=== PATIENT | female | born 1975 | race Caucasian/White ===

== ENCOUNTER → 2017-01-31 | Outpatient (CLI) | payer BC ==
[~2017-01-31] MED LIST: ACULAR 3 ML3 M1 OP; CEFTIN500 MG PO; TOBREX 5 ML5 ML OPH; TYLENOL W/CODE480 ML PO; VICODIN 5/500 505 MG PO
[2017-01-31 12:24] LABS: BASO # 0.1 10*3/uL (0.0-0.1); BASO % 0.6 % (0.0-1.0); EOS # 0.1 10*3/uL (0.0-0.4); HEMATOCRIT 45.5 % (37.0-47.0); HEMOGLOBIN 15.2 g/dl (12.0-16.0); IG # 0.1 10*3/uL (0.0-0.1); LYMPH # 1.8 10*3/uL (1.3-4.4); LYMPH % 20.6 % (27.0-41.0); MEAN CELL VOLUME 91.2 fl (81.0-99.0); MEAN CORPUSCULAR HGB 30.5 pg (27.0-31.0); MEAN CORPUSCULAR HGB CONC 33.4 g/dl (33.0-37.0); MEAN PLATELET VOLUME 10.3 fl (9.6-12.3); MONO # 0.8 10*3/uL (0.1-1.0); MONO % 9.7 % (3.0-9.0); NEUT # 5.8 10*3/uL (2.3-7.9); NEUT % 67.3 % (47.0-73.0); PLATELET COUNT AUTOMATED 284 10*3/uL (130-400); RED BLOOD COUNT 4.99 10*6/uL (4.10-5.10); RED CELL DISTRI WIDTH 13.8 % (0-14.5); WHITE BLOOD COUNT 8.6 10*3/uL (4.8-10.8)
[2017-01-31 12:43] LABS: ALKALINE PHOSPHATASE 51 U/L (45-117); BILIRUBIN, TOTAL 0.4 mg/dl (0.2-1.0); BUN 9 mg/dl (7-24); CARBON DIOXIDE 27 mmol/L (21-32); CHLORIDE 105 mmol/L (98-107); EST GLOM FILT AFRICAN AMERICAN > 60 ml/min; GLUCOSE 82 mg/dL (65-99); POTASSIUM 4.4 mmol/L (3.5-5.1); SGOT/AST 63 IU/L (3-35); SGPT/ALT 126 U/L (12-78); SODIUM 140 mmol/L (136-145); TOTAL PROTEIN 8.2 gm/dL (6.4-8.2)
[2017-01-31 13:35] LABS: VITAMIN D, 25-HYDROXY 30.9 ng/mL (30-100)
[2017-01-31 13:36] LABS: FOLIC ACID 7.85 ng/mL (>5.38)
== END | disposition home or self-care (01) ==
LOC: LAB 11:53
PROVIDERS: Nurse Practitioner Psychiatric/Mental Health
DX: Z51.81 Encounter for therapeutic drug level monitoring (principal); Z79.899 Other long term (current) drug therapy

== ENCOUNTER 2017-11-10 01:49 | Emergency (ER) | payer BC ==
[~2017-11-10] VITALS: Ht 172.7 cm; Wt 72.6 kg
[2017-11-10 02:30] LABS: BILIRUBIN NEGATIVE (NEGATIVE); BLOOD NEGATIVE (NEGATIVE); CLARITY SL CLOUDY (CLEAR); COLOR YELLOW (YELLOW); GLUCOSE NEGATIVE (NEGATIVE); KETONE NEGATIVE (NEGATIVE); LEUKO ESTERASE NEGATIVE (NEGATIVE); NITRITE NEGATIVE (NEGATIVE); PH 5.5 (5.0-9.0); SPECIFIC GRAVITY >= 1.030 (1.005-1.030); UROBILINOGEN 0.2 E.U./dl (0.2-1.0)
[2017-11-10 02:41] LABS: BASO # 0.1 10*3/uL (0.0-0.1); BASO % 0.6 % (0.0-1.0); EOS # 0.2 10*3/uL (0.0-0.4); EOS % 1.9 % (1.0-4.0); HEMATOCRIT 46.6 % (37.0-47.0); HEMOGLOBIN 15.5 g/dl (12.0-16.0); LYMPH # 2.4 10*3/uL (1.3-4.4); LYMPH % 28.1 % (27.0-41.0); MEAN CELL VOLUME 89.6 fl (81.0-99.0); MEAN CORPUSCULAR HGB 29.8 pg (27.0-31.0); MEAN CORPUSCULAR HGB CONC 33.3 g/dl (33.0-37.0); MEAN PLATELET VOLUME 10.8 fl (9.6-12.3); MONO # 0.8 10*3/uL (0.1-1.0); MONO % 9.9 % (3.0-9.0); NEUT % 59.3 % (47.0-73.0); PLATELET COUNT AUTOMATED 283 10*3/uL (130-400); RED CELL DISTRI WIDTH 13.5 % (0-14.5); WHITE BLOOD COUNT 8.4 10*3/uL (4.8-10.8)
[2017-11-10 02:44] LABS: CALCIUM OXALATE CRYSTALS 1+; EPITHELIAL CELLS 40-45
[2017-11-10 02:45] LABS: BACTERIA TRACE; WBC 0-2 wbc/hpf (0-5)
[2017-11-10 03:03] LABS: ALBUMIN 4.1 gm/dl (3.1-4.5); ALKALINE PHOSPHATASE 48 U/L (45-117); BUN 11 mg/dl (7-24); CHLORIDE 103 mmol/L (98-107); CREATININE 0.97 mg/dL (0.55-1.02); LIPASE 151 U/L (73-393); POTASSIUM 3.7 mmol/L (3.5-5.1); SGOT/AST 50 IU/L (3-35); SGPT/ALT 78 U/L (12-78); SODIUM 138 mmol/L (136-145); TOTAL PROTEIN 8.7 gm/dL (6.4-8.2)
[2017-11-10 03:23] VITALS: BP 118/70
[2017-11-10] MEDS ORDERED: FLAGYL250 MG PO (04:21)
[2017-11-10] MEDS ORDERED: CIPRO250 MG PO (04:21)
== END 2017-11-10 04:41 | disposition home or self-care (01) ==
LOC: ED 01:49
PROVIDERS: Student in an Organized Health Care Education/Training Program
DX: K52.9 Noninfective gastroenteritis and colitis, unspecified (principal)

== ENCOUNTER 2017-11-26 15:30 | Inpatient (IN) | payer BC ==
[~2017-11-26] VITALS: Ht 172.7 cm; Wt 78.9 kg
[~2017-11-26 15:30] MED LIST changes: +CIPRO250 MG PO; +FLAGYL250 MG PO
[2017-11-26 15:34] VITALS: BP 138/80
[2017-11-26 16:11] LABS: BASO % 0.3 % (0.0-1.0); EOS % 0.3 % (1.0-4.0); HEMATOCRIT 45.3 % (37.0-47.0); HEMOGLOBIN 14.9 g/dl (12.0-16.0); LYMPH # 0.8 10*3/uL (1.3-4.4); LYMPH % 28.7 % (27.0-41.0); MEAN CELL VOLUME 89.5 fl (81.0-99.0); MEAN CORPUSCULAR HGB 29.4 pg (27.0-31.0); MEAN CORPUSCULAR HGB CONC 32.9 g/dl (33.0-37.0); MEAN PLATELET VOLUME 10.9 fl (9.6-12.3); MONO # 0.2 10*3/uL (0.1-1.0); MONO % 7.8 % (3.0-9.0); NEUT # 1.8 10*3/uL (2.3-7.9); NEUT % 62.6 % (47.0-73.0); PLATELET COUNT AUTOMATED 119 10*3/uL (130-400); RED BLOOD COUNT 5.06 10*6/uL (4.10-5.10); RED CELL DISTRI WIDTH 13.8 % (0-14.5); WHITE BLOOD COUNT 2.9 10*3/uL (4.8-10.8)
[2017-11-26 16:19] LABS: BILIRUBIN NEGATIVE (NEGATIVE); BLOOD NEGATIVE (NEGATIVE); CLARITY SL CLOUDY (CLEAR); COLOR YELLOW (YELLOW); GLUCOSE NEGATIVE (NEGATIVE); KETONE 1+ (NEGATIVE); LEUKO ESTERASE NEGATIVE (NEGATIVE); NITRITE NEGATIVE (NEGATIVE); SPECIFIC GRAVITY >= 1.030 (1.005-1.030)
[2017-11-26 16:26] LABS: BACTERIA 2+
[2017-11-26 16:27] LABS: ALKALINE PHOSPHATASE 78 U/L (45-117); BUN 9 mg/dl (7-24); CHLORIDE 102 mmol/L (98-107); LIPASE 162 U/L (73-393); POTASSIUM 3.7 mmol/L (3.5-5.1); SGOT/AST 708 IU/L (3-35); SGPT/ALT 318 U/L (12-78); SODIUM 137 mmol/L (136-145); TOTAL PROTEIN 7.8 gm/dL (6.4-8.2)
[2017-11-26 16:28] LABS: URINE AMPHETAMINES < 1000 (1000ng/ml); URINE BARBITURATES < 200 (200ng/ml); URINE BENZODIAZEPINES < 200 (200ng/ml); URINE CANNABINOIDS (THC) < 50 (50ng/ml); URINE COCAINE > 300 (300ng/ml); URINE METHADONE < 300 (300ng/ml); URINE OPIATES < 300 (300ng/ml)
[2017-11-26 16:29] LABS: URINE PHENCYCLIDINE < 25 (25ng/ml)
[2017-11-26 16:33] VITALS: BP 70/40
[2017-11-26 17:25] LABS: ALKALINE PHOSPHATASE 76 U/L (45-117); BILIRUBIN, DIRECT 0.2 mg/dL (0.0-0.2); SGOT/AST 716 IU/L (3-35); SGPT/ALT 317 U/L (12-78); TOTAL PROTEIN 7.9 gm/dL (6.4-8.2)
[2017-11-26 17:28] LABS: TROPONIN I < 0.015 ng/ml (<0.045)
[2017-11-26 17:29] LABS: ACETAMINOPHEN (TYLENOL) 37.9 ug/ml (10-30); ETHYL ALCOHOL < 3.0 mg/dl (<3)
[2017-11-26 17:53] VITALS: BP 134/72
[2017-11-26 18:25] VITALS: BP 129/74
[2017-11-26 20:00] VITALS: BP 129/79
[2017-11-26 20:45] LABS: INTERNATIONAL NORM RATIO 1.2 (2.0-3.5)
[2017-11-27] VITALS: BP 125/81
[2017-11-27 06:10] LABS: ALBUMIN 3.1 gm/dl (3.1-4.5); BUN 8 mg/dl (7-24); CHLORIDE 101 mmol/L (98-107); CHOLESTEROL 148 mg/dL (<200); CREATININE 0.77 mg/dL (0.55-1.02); PHOSPHOROUS 2.5 mg/dL (2.5-4.9); POTASSIUM 3.2 mmol/L (3.5-5.1); SODIUM 137 mmol/L (136-145); TRIGLYCERIDES 28 mg/dl (<150); VLDL CHOLESTEROL 6 mg/dL (6-40)
[2017-11-27 06:25] LABS: TOTAL PROTEIN 6.4 gm/dL (6.4-8.2)
[2017-11-27 06:34] LABS: ALKALINE PHOSPHATASE 55 U/L (45-117); HDL CHOLESTEROL 98 mg/dl (40-60); LDL CHOLESTEROL 44 mg/dL (9-159)
[2017-11-27 06:39] LABS: SGOT/AST 3732 IU/L (3-35); SGPT/ALT 1423 U/L (12-78)
[2017-11-27 06:49] LABS: BASO % 0.2 % (0.0-1.0); EOS % 0.2 % (1.0-4.0); HEMATOCRIT 39.4 % (37.0-47.0); HEMOGLOBIN 13.3 g/dl (12.0-16.0); LYMPH # 0.8 10*3/uL (1.3-4.4); LYMPH % 17.1 % (27.0-41.0); MEAN CELL VOLUME 87.9 fl (81.0-99.0); MEAN CORPUSCULAR HGB 29.7 pg (27.0-31.0); MEAN CORPUSCULAR HGB CONC 33.8 g/dl (33.0-37.0); MEAN PLATELET VOLUME 11.4 fl (9.6-12.3); MONO # 0.1 10*3/uL (0.1-1.0); MONO % 2.4 % (3.0-9.0); NEUT # 3.7 10*3/uL (2.3-7.9); NEUT % 79.9 % (47.0-73.0); PLATELET COUNT AUTOMATED 106 10*3/uL (130-400); RED BLOOD COUNT 4.48 10*6/uL (4.10-5.10); RED CELL DISTRI WIDTH 13.5 % (0-14.5); WHITE BLOOD COUNT 4.6 10*3/uL (4.8-10.8)
[2017-11-27 07:59] LABS: VITAMIN D, 25-HYDROXY 19.5 ng/mL (30-100)
[2017-11-27 08:00] VITALS: BP 119/96
[2017-11-27 12:00] VITALS: BP 132/81
[2017-11-27 16:00] VITALS: BP 116/61
[2017-11-27 20:05] VITALS: BP 114/66
[2017-11-28 00:25] VITALS: BP 120/63
[2017-11-28 03:12] LABS: HEMATOCRIT 40.6 % (37.0-47.0); HEMOGLOBIN 13.6 g/dl (12.0-16.0); MEAN CELL VOLUME 88.1 fl (81.0-99.0); MEAN CORPUSCULAR HGB 29.5 pg (27.0-31.0); MEAN CORPUSCULAR HGB CONC 33.5 g/dl (33.0-37.0); MEAN PLATELET VOLUME 11.5 fl (9.6-12.3); PLATELET COUNT AUTOMATED 93 10*3/uL (130-400); RED BLOOD COUNT 4.61 10*6/uL (4.10-5.10); RED CELL DISTRI WIDTH 13.5 % (0-14.5)
[2017-11-28 03:22] LABS: ACT PARTIAL THROMBO TIME 41.3 SECONDS (20.8-31.5); INTERNATIONAL NORM RATIO 1.9 (2.0-3.5)
[2017-11-28 03:30] LABS: ALKALINE PHOSPHATASE 67 U/L (45-117); BUN 6 mg/dl (7-24); CHLORIDE 103 mmol/L (98-107); CREATININE 0.84 mg/dL (0.55-1.02); POTASSIUM 3.7 mmol/L (3.5-5.1); SODIUM 139 mmol/L (136-145); TOTAL PROTEIN 6.2 gm/dL (6.4-8.2)
[2017-11-28 03:34] LABS: ATYPICAL LYMPHS 1 % (0-0); PLATELET SUFFICIENCY LOW (NORMAL); TOTAL CELLS COUNTED 100 #CELLS
[2017-11-28 03:35] LABS: BURR CELLS FEW
[2017-11-28 03:51] LABS: SGOT/AST 10878 IU/L (3-35); SGPT/ALT 4691 U/L (12-78)
[2017-11-28 08:00] VITALS: BP 118/67
[2017-11-28 08:08] LABS: HEPATITIS B SURFACE AG Negative (Negative); HEPATITIS C VIRUS ANTIBODY <0.1 s/co (0.0-0.9)
[2017-11-28 08:08] LABS: HIV 1+2 AB + HIV1 P24 AG Non Reactive (Non Reactive)
[2017-11-28 08:31] LABS: ACT PARTIAL THROMBO TIME 42.2 SECONDS (20.8-31.5); INTERNATIONAL NORM RATIO 1.8 (2.0-3.5)
[2017-11-28 17:00] VITALS: BP 118/75
[2017-11-28 18:24] LABS: ALBUMIN 2.7 gm/dl (3.1-4.5); ALKALINE PHOSPHATASE 67 U/L (45-117); BUN 8 mg/dl (7-24); CHLORIDE 101 mmol/L (98-107); CREATININE 0.89 mg/dL (0.55-1.02); POTASSIUM 3.8 mmol/L (3.5-5.1); SODIUM 137 mmol/L (136-145); TOTAL PROTEIN 5.9 gm/dL (6.4-8.2)
[2017-11-28 18:29] LABS: ACT PARTIAL THROMBO TIME 49.5 SECONDS (20.8-31.5); INTERNATIONAL NORM RATIO 1.9 (2.0-3.5)
[2017-11-28 19:07] LABS: SGOT/AST 8449 IU/L (3-35); SGPT/ALT 4504 U/L (12-78)
[2017-11-28 20:00] VITALS: BP 128/66
[2017-11-28 20:42] LABS: BILIRUBIN NEGATIVE (NEGATIVE); BLOOD 2+ (NEGATIVE); CLARITY SL CLOUDY (CLEAR); COLOR YELLOW (YELLOW); GLUCOSE NEGATIVE (NEGATIVE); KETONE 1+ (NEGATIVE); LEUKO ESTERASE NEGATIVE (NEGATIVE); NITRITE NEGATIVE (NEGATIVE); PH 5.5 (5.0-9.0); SPECIFIC GRAVITY 1.025 (1.005-1.030); UROBILINOGEN 0.2 E.U./dl (0.2-1.0)
[2017-11-28 20:50] LABS: BACTERIA 4+
[2017-11-28] MEDS ORDERED: NS 0.9% IV (22:16)
== END 2017-11-28 23:18 | disposition short-term general hospital (02) | DRG 918 ==
LOC: ED 15:30 → EDHOLD 17:12 → 4E 17:12 → ICCU 11-28 15:03
PROVIDERS: Family Medicine; Internal Medicine; Physician Assistant; Student in an Organized Health Care Education/Training Program
DX: T39.1X1A Poisoning by 4-Aminophenol derivatives, accidental (unintentional), initial encounter (principal); D69.6 Thrombocytopenia, unspecified; K72.90 Hepatic failure, unspecified without coma; B17.9 Acute viral hepatitis, unspecified; F55.2 Abuse of laxatives; Z79.899 Other long term (current) drug therapy; Z79.2 Long term (current) use of antibiotics; Z82.49 Family history of ischemic heart disease and other diseases of the circulatory system; Z98.51 Tubal ligation status; Z72.89 Other problems related to lifestyle; Z84.89 Family history of other specified conditions

== ENCOUNTER → 2018-02-06 | Day surgery (SDC) | payer BC ==
[~2018-02-06] VITALS: Ht 172.7 cm; Wt 74.8 kg
[~2018-02-06] MED LIST changes: +NS 0.9% IV
--- NOTE | ~2018-02-06 | PROC NOTE ---
[place], [place] PROCEDURE NOTE NAME: SELINA CORBETT UNIT #: [id number] ROOM: DOCTOR: NELA CORRALES MD BIRTHDATE: [birth year] DOS: 02/06/2018 PREOPERATIVE DIAGNOSES: Diarrhea, weight loss. POSTOPERATIVE DIAGNOSIS: Colitis. PROCEDURE: Colonoscopy with random biopsies. ENDOSCOPIST: Nela Corrales MD LENS MAKER: ELIDA. ANESTHESIA: MAC. INDICATIONS: This is a 42-year-old lady here for a colonoscopy for symptoms of diarrhea and weight loss. The procedure and its complications were explained to the patient in detail preoperatively. Complications that were discussed included but were not limited to, bleeding, colon perforation, missed lesions and prolonged pain. She agreed to proceed. DESCRIPTION OF PROCEDURE: After identifying the patient, the patient was brought to the endoscopy suite and placed in the left lateral position. After IV sedation was administered, a timeout procedure was called and a digital rectal exam was performed, which was within normal limits. An adult colonoscope was now introduced into the anal canal and advanced sequentially into the rectum, sigmoid colon, descending colon, transverse colon and ascending colon, up to the cecum. There was found to be patches of erythematous mucosa that could be seen in the entirety of the colon. Upon reaching the cecum, the scope was withdrawn. Multiple random biopsies were done from the areas of the ascending colon, transverse colon, descending colon, sigmoid colon and sent for histopathological diagnosis. After the scope was withdrawn, the patient was brought back to the recovery room in a stable fashion. Based on these findings, the patient is recommended to have another colonoscopy in a year or sooner should the symptoms not improve. These findings were discussed with the patient's son in the recovery room. I will see the patient in the office in 2 weeks. Nela Corrales MD CM:PROCNOTE:PROCEDURE NOTE NELA CORRALES MD
[2018-02-06 07:30] VITALS: BP 101/82
[2018-02-06 08:50] VITALS: BP 103/59
[2018-02-06 09:05] VITALS: BP 110/59
[2018-02-06 09:19] VITALS: BP 111/73
== END | disposition home or self-care (01) ==
LOC: SDC 02-04 12:30
DX: K63.89 Other specified diseases of intestine (principal); K52.9 Noninfective gastroenteritis and colitis, unspecified; Z98.51 Tubal ligation status; Z80.0 Family history of malignant neoplasm of digestive organs

== ENCOUNTER → 2018-02-17 | Outpatient (CLI) | payer BC ==
[2018-02-17 14:49] LABS: BASO % 0.6 % (0.0-1.0); EOS # 0.1 10*3/uL (0.0-0.4); EOS % 1.1 % (1.0-4.0); HEMATOCRIT 44.8 % (37.0-47.0); HEMOGLOBIN 14.7 g/dl (12.0-16.0); LYMPH # 1.5 10*3/uL (1.3-4.4); LYMPH % 24.3 % (27.0-41.0); MEAN CELL VOLUME 89.6 fl (81.0-99.0); MEAN CORPUSCULAR HGB 29.4 pg (27.0-31.0); MEAN CORPUSCULAR HGB CONC 32.8 g/dl (33.0-37.0); MEAN PLATELET VOLUME 11.3 fl (9.6-12.3); MONO # 0.5 10*3/uL (0.1-1.0); MONO % 7.7 % (3.0-9.0); NEUT # 4.2 10*3/uL (2.3-7.9); PLATELET COUNT AUTOMATED 263 10*3/uL (130-400); RED CELL DISTRI WIDTH 13.5 % (0-14.5); WHITE BLOOD COUNT 6.3 10*3/uL (4.8-10.8)
[2018-02-17 15:15] LABS: ACT PARTIAL THROMBO TIME 23.5 SECONDS (20.8-31.5)
[2018-02-17 15:18] LABS: ALBUMIN 3.9 gm/dl (3.1-4.5); ALKALINE PHOSPHATASE 45 U/L (45-117); BUN 6 mg/dl (7-24); CHLORIDE 104 mmol/L (98-107); CREATININE 1.01 mg/dL (0.55-1.02); POTASSIUM 3.7 mmol/L (3.5-5.1); SGOT/AST 56 IU/L (3-35); SGPT/ALT 56 U/L (12-78); SODIUM 140 mmol/L (136-145); TOTAL PROTEIN 7.9 gm/dL (6.4-8.2)
== END | disposition home or self-care (01) ==
LOC: LAB 14:15
PROVIDERS: Surgery
DX: R11.2 Nausea with vomiting, unspecified (principal); D68.8 Other specified coagulation defects

== ENCOUNTER → 2018-02-23 | Outpatient (CLI) | payer BC | END | disposition home or self-care (01) | LOC: US 02:44 | DX: K76.89 Other specified diseases of liver (principal) ==

== ENCOUNTER 2018-03-15 18:34 | Emergency (ER) | payer BC ==
[~2018-03-15] VITALS: Ht 170.1 cm; Wt 74.8 kg
[2018-03-15] MEDS ORDERED: ESCITALOPRAM OX20 MG PO (18:41)
[2018-03-15] MEDS ORDERED: BUSPIRONE HCL10 MG PO (18:41)
[2018-03-15] MEDS ORDERED: ALPRAZOLAM0.5 M3 PO (18:41)
[2018-03-15 18:53] LABS: BASO % 0.4 % (0.0-1.0); EOS # 0.2 10*3/uL (0.0-0.4); EOS % 2.1 % (1.0-4.0); HEMATOCRIT 42.2 % (37.0-47.0); HEMOGLOBIN 13.9 g/dl (12.0-16.0); LYMPH # 1.6 10*3/uL (1.3-4.4); LYMPH % 20.6 % (27.0-41.0); MEAN CORPUSCULAR HGB 29.6 pg (27.0-31.0); MEAN CORPUSCULAR HGB CONC 32.9 g/dl (33.0-37.0); MEAN PLATELET VOLUME 10.6 fl (9.6-12.3); MONO # 0.5 10*3/uL (0.1-1.0); MONO % 7.2 % (3.0-9.0); NEUT # 5.2 10*3/uL (2.3-7.9); NEUT % 69.2 % (47.0-73.0); PLATELET COUNT AUTOMATED 277 10*3/uL (130-400); RED BLOOD COUNT 4.69 10*6/uL (4.10-5.10); RED CELL DISTRI WIDTH 13.7 % (0-14.5); WHITE BLOOD COUNT 7.5 10*3/uL (4.8-10.8)
[2018-03-15 19:11] LABS: ACT PARTIAL THROMBO TIME 23.4 SECONDS (20.8-31.5)
[2018-03-15 19:16] LABS: ALBUMIN 4.1 gm/dl (3.1-4.5); ALKALINE PHOSPHATASE 46 U/L (45-117); BUN 4 mg/dl (7-24); CHLORIDE 104 mmol/L (98-107); CREATININE 0.78 mg/dL (0.55-1.02); POTASSIUM 3.1 mmol/L (3.5-5.1); SGOT/AST 60 IU/L (3-35); SGPT/ALT 52 U/L (12-78); SODIUM 141 mmol/L (136-145); TOTAL PROTEIN 7.7 gm/dL (6.4-8.2)
[2018-03-15 19:21] LABS: ACETAMINOPHEN (TYLENOL) < 2.0 ug/ml (10-30); ETHYL ALCOHOL < 3.0 mg/dl (<3)
[2018-03-15 19:22] LABS: BILIRUBIN NEGATIVE (NEGATIVE); BLOOD NEGATIVE (NEGATIVE); CLARITY CLEAR (CLEAR); COLOR YELLOW (YELLOW); GLUCOSE NEGATIVE (NEGATIVE); KETONE TRACE (NEGATIVE); LEUKO ESTERASE NEGATIVE (NEGATIVE); NITRITE NEGATIVE (NEGATIVE); UROBILINOGEN 0.2 E.U./dl (0.2-1.0)
[2018-03-15 19:30] LABS: URINE AMPHETAMINES < 1000 (1000ng/ml); URINE BARBITURATES < 200 (200ng/ml); URINE BENZODIAZEPINES < 200 (200ng/ml); URINE CANNABINOIDS (THC) < 50 (50ng/ml); URINE COCAINE < 300 (300ng/ml); URINE METHADONE < 300 (300ng/ml); URINE OPIATES < 300 (300ng/ml)
[2018-03-15 19:38] LABS: URINE PHENCYCLIDINE < 25 (25ng/ml)
[2018-03-15 19:40] LABS: MUCOUS 1+
[2018-03-16 07:13] VITALS: BP 116/74
== END 2018-03-16 08:30 | disposition short-term general hospital (02) ==
LOC: ED 18:34
PROVIDERS: Emergency Medicine
DX: R45.851 Suicidal ideations (principal); F41.9 Anxiety disorder, unspecified; R10.84 Generalized abdominal pain; Z98.51 Tubal ligation status

== ENCOUNTER → 2019-03-03 | Outpatient (CLI) | payer OTHER ==
[~2019-03-03] MED LIST changes: +ALEVE220 MG PO; +ALPRAZOLAM0.5 M3 PO; +BUSPIRONE HCL10 MG PO; +ESCITALOPRAM OX20 MG PO; +LASIX20 MG PO
== END | disposition home or self-care (01) ==
LOC: US 06:25
DX: K76.89 Other specified diseases of liver (principal)

== ENCOUNTER → 2019-03-30 | Outpatient (CLI) | payer OTHER ==
[2019-03-31 12:07] LABS: ANTI-SMOOTH MUSCLE ANTIBODY 10 Units (0-19)
[2019-03-31 13:08] LABS: ANTI-DSDNA ANTIBODIES 096339 <1 IU/mL (0-9); ANTI-RNP ANTIBODIES <0.2 AI (0.0-0.9); ANTICHROMATIN ANTIBODIES <0.2 AI (0.0-0.9); ANTISCLERODERMA-70 AB <0.2 AI (0.0-0.9); SJOGREN ANTI-SS-A <0.2 AI (0.0-0.9); SJOREN AB, ANTI-SS-B <0.2 AI (0.0-0.9)
[2019-04-01 13:06] LABS: ANTIHISTONE ANTIBODIES 0.7 Units (0.0-0.9)
== END | disposition home or self-care (01) ==
LOC: LAB 11:18
PROVIDERS: Internal Medicine
DX: L29.8 Other pruritus (principal)

== ENCOUNTER → 2019-04-08 | Outpatient (CLI) | payer OTHER | END | disposition home or self-care (01) | LOC: MAMMO 12:43 | DX: Z12.31 Encounter for screening mammogram for malignant neoplasm of breast (principal) ==

== ENCOUNTER → 2019-04-28 | Outpatient (CLI) | payer OTHER | END | disposition home or self-care (01) | LOC: MAMMO 10:59 | DX: R92.8 Other abnormal and inconclusive findings on diagnostic imaging of breast (principal) ==

== ENCOUNTER → 2019-04-30 | Day surgery (SDC) | payer OTHER ==
[~2019-04-30] VITALS: Ht 167.6 cm; Wt 77.1 kg
--- NOTE | ~2019-04-30 | PROC NOTE ---
[place], [place] PROCEDURE NOTE NAME: SELINA CORBETT UNIT #: [id number] ROOM: DOCTOR: TERESITA LUU,ANGELIQUE BIRTHDATE: [birth year] DOS: PROCEDURE: Esophagogastroduodenoscopy and biopsy. INDICATION: Abdominal pain and nausea. An informed consent was obtained from the patient after indication of procedure, the alternatives, and potential complications were explained to her. PROCEDURE MEDICATION: Sedation was administered by Anesthesiology Department. Scope used was Olympus diagnostic adult upper endoscope GIF-180, depth of insertion was to the descending duodenum. FINDINGS: After adequate sedation, the patient was placed in left lateral decubitus position. The scope was introduced under direct visualization through the upper esophageal sphincter into the esophagus. Esophageal mucosa appeared normal with no ulcerations or strictures. Lower esophageal sphincter was identified at 38 cm from incisors. Stomach was then intubated. Gastric mucosa inspected. Large amounts of food residues were noted. The underlying mucosa showed evidence of gastritis and A JASON test was performed from the gastric antrum and body. Retroflexed views in the fundus showed a grade 1 sliding hiatal hernia. Pylorus was intubated easily. The duodenal bulb and descending duodenum were within normal range. Scope was then withdrawn after the stomach was decompressed. The patient tolerated the procedure well. IMPRESSION: 1. Small hiatal hernia. 2. Food residues in the stomach, rule out delayed gastric emptying. 3. Gastritis, AJSON test performed. PLAN: We will review the JASON test results, treat the patient accordingly. The patient will be scheduled for SmartPill study as an outpatient to evaluate the GI motility. Office followup will be scheduled in 2-3 weeks. ANGELIQUE LO MD CM:PROCNOTE:PROCEDURE NOTE [id number] ANGELIQUE LO MD
[2019-04-30 07:03] VITALS: BP 130/67
[2019-04-30 07:59] VITALS: BP 125/80
[2019-04-30 08:14] VITALS: BP 122/84
[2019-04-30 08:26] VITALS: BP 120/80
== END | disposition home or self-care (01) ==
LOC: SDC 04-27 10:15
DX: K44.9 Diaphragmatic hernia without obstruction or gangrene (principal); K29.70 Gastritis, unspecified, without bleeding; B19.20 Unspecified viral hepatitis C without hepatic coma; F41.9 Anxiety disorder, unspecified; F32.9 Major depressive disorder, single episode, unspecified; R94.5 Abnormal results of liver function studies; R68.81 Early satiety; E66.9 Obesity, unspecified; Z68.27 Body mass index [BMI] 27.0-27.9, adult; Z79.899 Other long term (current) drug therapy; Z87.19 Personal history of other diseases of the digestive system; Z98.51 Tubal ligation status; Z80.0 Family history of malignant neoplasm of digestive organs; Z98.890 Other specified postprocedural states; Z82.49 Family history of ischemic heart disease and other diseases of the circulatory system

== ENCOUNTER → 2020-04-10 | Outpatient (CLI) | payer OTHER | END | disposition home or self-care (01) | LOC: CT 07:43 | DX: K76.0 Fatty (change of) liver, not elsewhere classified (principal); K76.89 Other specified diseases of liver ==

== ENCOUNTER → 2020-07-18 | Outpatient (CLI) | payer OTHER | END | disposition home or self-care (01) | LOC: COVID19 00:25 | PROVIDERS: ATTEND Physician Assistant | DX: Z20.828 Contact with and (suspected) exposure to other viral communicable diseases (principal) ==

== ENCOUNTER → 2020-11-14 | Outpatient (CLI) | payer BC | END | disposition home or self-care (01) | LOC: COVID19 09:12 | PROVIDERS: ATTEND Physician Assistant | DX: Z20.822 Contact with and (suspected) exposure to COVID-19 (principal); R69 Illness, unspecified ==

== ENCOUNTER 2021-02-27 11:19 | Inpatient (IN) | payer BC ==
[2021-02-27] VITALS (11 sets, daily range): BP systolic 102–139; BP diastolic 52–85
[~2021-02-27] VITALS: Ht 172.7 cm; Wt 108.2 kg
[2021-02-27 11:56] LABS: BASO % 0.2 % (0.0-1.0); EOS % 0.2 % (1.0-4.0); HEMATOCRIT 37.9 % (37.0-47.0); LYMPH # 1.9 10*3/uL (1.3-4.4); LYMPH % 14.4 % (27.0-41.0); MEAN CELL VOLUME 91.5 fl (81.0-99.0); MEAN CORPUSCULAR HGB 29.7 pg (27.0-31.0); MEAN CORPUSCULAR HGB CONC 32.5 g/dl (33.0-37.0); MEAN PLATELET VOLUME 10.1 fl (9.6-12.3); MONO # 0.7 10*3/uL (0.1-1.0); MONO % 5.7 % (3.0-9.0); NEUT # 10.1 10*3/uL (2.3-7.9); NEUT % 78.9 % (47.0-73.0); PLATELET COUNT AUTOMATED 294 10*3/uL (130-400); RED BLOOD COUNT 4.14 10*6/uL (4.10-5.10); RED CELL DISTRI WIDTH 13.6 % (0-14.5); WHITE BLOOD COUNT 12.9 10*3/uL (4.8-10.8)
[2021-02-27 12:05] LABS: BILIRUBIN Negative (Negative); BLOOD Negative (Negative); CLARITY Clear (Clear); COLOR Yellow (Yellow); GLUCOSE Negative (Negative); KETONE 3+ (Negative); LEUKO ESTERASE Negative (Negative); NITRITE Negative (Negative); UROBILINOGEN 0.2 E.U./dl (0.0-1.0)
[2021-02-27] MEDS ORDERED: LINZESS290 MC1 PO (12:08)
[2021-02-27 12:11] LABS: ALBUMIN 3.4 gm/dl (3.1-4.5); ALKALINE PHOSPHATASE 58 U/L (45-117); BUN 12 mg/dl (7-24); CHLORIDE 109 mmol/L (98-107); CREATININE 0.88 mg/dL (0.55-1.02); POTASSIUM 3.6 mmol/L (3.5-5.1); SGOT/AST 49 IU/L (3-35); SGPT/ALT 111 U/L (12-78); SODIUM 138 mmol/L (136-145); TOTAL PROTEIN 7.7 gm/dL (6.4-8.2)
[2021-02-27 12:27] LABS: BACTERIA TRACE; EPITHELIAL CELLS TNTC; MUCOUS TRACE; RBC 0-2 rbc/hpf (0-2); WBC 0-2 wbc/hpf (0-5)
[2021-02-28] VITALS: BP 115/56
[2021-02-28 06:05] LABS: BASO % 0.1 % (0.0-1.0); HEMATOCRIT 35.3 % (37.0-47.0); LYMPH # 0.7 10*3/uL (1.3-4.4); LYMPH % 7.7 % (27.0-41.0); MEAN CELL VOLUME 92.7 fl (81.0-99.0); MEAN CORPUSCULAR HGB 29.7 pg (27.0-31.0); MEAN PLATELET VOLUME 10.5 fl (9.6-12.3); MONO # 0.4 10*3/uL (0.1-1.0); MONO % 4.2 % (3.0-9.0); NEUT # 8.3 10*3/uL (2.3-7.9); NEUT % 87.5 % (47.0-73.0); PLATELET COUNT AUTOMATED 260 10*3/uL (130-400); RED BLOOD COUNT 3.81 10*6/uL (4.10-5.10); RED CELL DISTRI WIDTH 13.9 % (0-14.5); WHITE BLOOD COUNT 9.5 10*3/uL (4.8-10.8)
[2021-02-28 06:25] LABS: CHLORIDE 109 mmol/L (98-107); POTASSIUM 4.3 mmol/L (3.5-5.1); SODIUM 137 mmol/L (136-145)
[2021-02-28 06:31] LABS: ACT PARTIAL THROMBO TIME 26.9 SECONDS (20.0-32.1)
[2021-02-28 06:32] LABS: ALBUMIN 2.9 gm/dl (3.1-4.5); ALKALINE PHOSPHATASE 45 U/L (45-117); BUN 9 mg/dl (7-24); CHOLESTEROL 171 mg/dL (<200); CREATININE 0.79 mg/dL (0.55-1.02); FREE T4 1.17 ng/dl (0.76-1.46); LDL CHOLESTEROL 81 mg/dL (9-159); SGOT/AST 33 IU/L (3-35); SGPT/ALT 82 U/L (12-78); TOTAL PROTEIN 6.5 gm/dL (6.4-8.2); TRIGLYCERIDES 51 mg/dl (<150)
[2021-02-28 06:46] LABS: VITAMIN D, 25-HYDROXY 51.2 ng/mL (30-100)
[2021-02-28 08:00] VITALS: BP 112/64
[2021-02-28 13:00] VITALS: BP 100/56
[2021-02-28] MEDS ORDERED: HYDROCODONE-AC1 EAC1 PO (13:30)
[2021-02-28] MEDS ORDERED: ZOFRAN4 MG PO (13:30)
[2021-02-28] MEDS ORDERED: BISACODYL LAXATI5 MG PO (13:30)
== END 2021-02-28 15:17 | disposition home or self-care (01) | DRG 854 ==
LOC: ED 11:19 → EDHOLD 14:23 → 4E 14:23 → EDHOLD 14:55 → 4E 15:08
PROVIDERS: Internal Medicine; Physician Assistant; ADMIT Internal Medicine; ATTEND Internal Medicine
PROC: 0DTJ4ZZ Resection of Appendix, Percutaneous Endoscopic Approach (ICD-10-PCS; principal; 2021-02-27)
DX: A41.9 Sepsis, unspecified organism (principal); K35.80 Unspecified acute appendicitis; E44.1 Mild protein-calorie malnutrition; K58.9 Irritable bowel syndrome, unspecified; E87.8 Other disorders of electrolyte and fluid balance, not elsewhere classified; R74.01 Elevation of levels of liver transaminase levels; D64.9 Anemia, unspecified; R73.9 Hyperglycemia, unspecified; Z98.51 Tubal ligation status; Z81.1 Family history of alcohol abuse and dependence; Z83.79 Family history of other diseases of the digestive system; Z82.49 Family history of ischemic heart disease and other diseases of the circulatory system; Z80.0 Family history of malignant neoplasm of digestive organs; Z80.8 Family history of malignant neoplasm of other organs or systems; Z82.5 Family history of asthma and other chronic lower respiratory diseases; Z68.36 Body mass index [BMI] 36.0-36.9, adult

== ENCOUNTER → 2021-03-14 | Outpatient (CLI) | payer BC ==
[~2021-03-14] MED LIST changes: +BISACODYL LAXATI5 MG PO; +HYDROCODONE-AC1 EAC1 PO; +LINZESS290 MC1 PO; +ZOFRAN4 MG PO
== END | disposition home or self-care (01) ==
LOC: CT 09:00
PROVIDERS: ATTEND Surgery
DX: K57.30 Diverticulosis of large intestine without perforation or abscess without bleeding (principal); N83.202 Unspecified ovarian cyst, left side; K76.89 Other specified diseases of liver; Z98.890 Other specified postprocedural states

== ENCOUNTER 2021-03-15 10:22 | Emergency (ER) | payer BC ==
[~2021-03-15] VITALS: Wt 100.2 kg
[2021-03-15 10:35] VITALS: BP 135/81
[2021-03-15 12:01] LABS: BASO % 0.4 % (0.0-1.0); EOS # 0.1 10*3/uL (0.0-0.4); EOS % 0.7 % (1.0-4.0); HEMATOCRIT 37.9 % (37.0-47.0); LYMPH # 2.2 10*3/uL (1.3-4.4); LYMPH % 20.5 % (27.0-41.0); MEAN CELL VOLUME 90.2 fl (81.0-99.0); MEAN CORPUSCULAR HGB 30.2 pg (27.0-31.0); MEAN CORPUSCULAR HGB CONC 33.5 g/dl (33.0-37.0); MEAN PLATELET VOLUME 10.3 fl (9.6-12.3); MONO # 0.8 10*3/uL (0.1-1.0); MONO % 7.6 % (3.0-9.0); NEUT # 7.5 10*3/uL (2.3-7.9); NEUT % 70.1 % (47.0-73.0); PLATELET COUNT AUTOMATED 288 10*3/uL (130-400); RED CELL DISTRI WIDTH 13.4 % (0-14.5); WHITE BLOOD COUNT 10.7 10*3/uL (4.8-10.8)
[2021-03-15 12:13] LABS: BILIRUBIN Negative (Negative); BLOOD Negative (Negative); CLARITY Clear (Clear); COLOR Yellow (Yellow); GLUCOSE Negative (Negative); KETONE 1+ (Negative); LEUKO ESTERASE Negative (Negative); NITRITE Negative (Negative); PH 6.5 (4.5-8.0); UROBILINOGEN 0.2 E.U./dl (0.0-1.0)
[2021-03-15 12:19] LABS: ALBUMIN 3.6 gm/dl (3.1-4.5); ALKALINE PHOSPHATASE 52 U/L (45-117); BUN 10 mg/dl (7-24); CHLORIDE 106 mmol/L (98-107); CREATININE 0.96 mg/dL (0.55-1.02); POTASSIUM 3.1 mmol/L (3.5-5.1); SGOT/AST 23 IU/L (3-35); SGPT/ALT 40 U/L (12-78); SODIUM 138 mmol/L (136-145); TOTAL PROTEIN 7.4 gm/dL (6.4-8.2)
[2021-03-15 12:23] LABS: TROPONIN I < 0.015 ng/ml (<0.045)
[2021-03-15 12:24] LABS: BACTERIA TRACE; WBC 0-2 wbc/hpf (0-5)
== END 2021-03-15 14:14 | disposition home or self-care (01) ==
LOC: ED 10:22
PROVIDERS: Emergency Medicine
DX: R55 Syncope and collapse (principal); Z79.899 Other long term (current) drug therapy; Z98.51 Tubal ligation status

== ENCOUNTER → 2021-03-30 | Outpatient (CLI) | payer BC | END | disposition home or self-care (01) | LOC: US 10:23 | PROVIDERS: ATTEND Physician Assistant | DX: K76.0 Fatty (change of) liver, not elsewhere classified (principal) ==

== ENCOUNTER → 2021-04-03 | Outpatient (CLI) | payer BC | END | disposition home or self-care (01) | LOC: NM 03-30 11:00 | PROVIDERS: ATTEND Physician Assistant | DX: R11.0 Nausea (principal) ==